=== PATIENT | female | born 1950 | race Caucasian/White ===

== ENCOUNTER 2022-07-22 09:56 | Emergency (ER) | payer MEDICARE ==
--- NOTE | 2022-07-22 09:58 | ERPHSYRPT ---
- History of Present Illness Time Seen by Provider: 07/22/22 09:58 Historian: patient Exam Limitations: no limitations Physician History: This is a 72-year-old white female who states that she is extremely healthy. But over the last month she has had intermittent left-sided chest pain that she describes as an ache or pressure. She has not seen a technical service specialist in 25 years. The patient is under a lot of stress at this time with some deaths in the family as well as deaths of friends. She wanted to be evaluated to make sure she was not having heart attack. Timing/Duration: intermittent, other (Intermittently for a month) Quality: aching, pressure Location: other (Left anterior chest) Severity of Pain-Max: mild Severity of Pain-Current: mild Associated Symptoms: denies symptoms Prior Chest Pain/Cardiac Workup: no prior chest pain Nitro Today/Relief: no nitro taken today Aspirin Treatment Today: 81 mg x 4, provided by ED Allergies/Adverse Reactions: chocolate flavor Allergy (Severe, Verified 07/22/22 10:06) Shortness of Breath peanut Allergy (Intermediate, Verified 07/22/22 10:06) hives shortness of breath Sulfa (Sulfonamide Antibiotics) Allergy (Intermediate, Verified 07/22/22 10:04) Hives dimenhydrinate [From Dramamine] Adverse Reaction (Verified 07/22/22 10:06) dizzy mercury (elemental) Adverse Reaction (Verified 07/22/22 10:06) sensitivity Home Medications: No Reportable Medications [No Reported Medications] 07/22/22 [History] Travel Risk - International Travel Have you traveled outside of the country in past 3 weeks: No - Coronavirus Screening Are you exhibiting any of the following symptoms?: No Close contact with a COVID-19 positive Pt in past 14-21 Days: No - Review of Systems Constitutional: No Symptoms Eyes: No Symptoms Ears, Nose, & Throat: No Symptoms Respiratory: No Symptoms Cardiac: Chest Pain (Left anterior and lower chest) Abdominal/Gastrointestinal: No Symptoms Genitourinary Symptoms: No Symptoms Musculoskeletal: No Symptoms Skin: No Symptoms Neurological: No Symptoms Psychological: No Symptoms Endocrine: No Symptoms Hematologic/Lymphatic: No Symptoms Immunological/Allergic: No Symptoms All Other Systems: Reviewed and Negative - Past Medical History Pertinent Past Medical History: Yes - Past Surgical History Past Surgical History: Yes - Nursing Vital Signs Nursing Vital Signs: Initial Vital Signs Temperature 97.8 F 07/22/22 09:56 Pulse Rate 86 07/22/22 09:56 Respiratory Rate 20 07/22/22 09:56 Blood Pressure 139/83 07/22/22 09:56 O2 Sat by Pulse Oximetry 99 07/22/22 09:56 Pain Scale Pain Intensity 0 - Physical Exam General Appearance: no apparent distress, alert, anxiety, thin Eye Exam: PERRL/EOMI, eyes nml inspection Ears, Nose, Throat Exam: normal ENT inspection, moist mucous membranes Neck Exam: normal inspection, non-tender, supple, full range of motion Respiratory Exam: normal breath sounds, chest tenderness, lungs clear, prolonged expirations, No respiratory distress Cardiovascular Exam: regular rate/rhythm, normal heart sounds, normal peripheral pulses Gastrointestinal/Abdomen Exam: soft, normal bowel sounds, No tenderness Pelvic Exam: deferred Rectal Exam: deferred Back Exam: normal inspection, normal range of motion, No CVA tenderness, No vertebral tenderness Extremity Exam: normal inspection, normal range of motion, pelvis stable Neurologic Exam: alert, oriented x 3, cooperative, event sales manager II-XII nml as tested, normal mood/affect, nml cerebellar function, nml station & gait, sensation nml Skin Exam: normal color, warm, dry Lymphatic Exam: No adenopathy SpO2 Interpretation: normal O2 Delivery: Room Air - Course Nursing assessment & vital signs reviewed: Yes EKG Interpreted by Me: RATE (78), NORMAL AXIS, NORMAL INTERVALS, NORMAL QRS, Other (No acute ischemic changes on today's twelve-lead EKG.) Ordered Tests: Active Orders 24 hr Category Date Time Status EKG-ER Only STAT Care 07/22/22 10:14 Active Pulse Oximetry (ED) STAT Care 07/22/22 10:14 Active CHEST 1 VIEW (PORTABLE) Stat Exams 07/22/22 10:15 Completed CBC W DIFF Stat Lab 07/22/22 10:00 Completed CMP Stat Lab 07/22/22 10:00 Completed D-DIMER QUANTITATIVE Stat Lab 07/22/22 10:00 Completed MAG [MAGNESIUM] Stat Lab 07/22/22 10:00 Completed TROPONIN Q4H Lab 07/22/22 10:00 Completed TROPONIN Q4H Lab 07/22/22 14:15 Ordered TROPONIN Q4H Lab 07/22/22 18:15 Ordered Medication Summary Discontinued Medications Generic Name Dose Route Start Last Admin Trade Name Melissa PRN Reason Stop Dose Admin Aspirin 324 mg 07/22/22 10:14 07/22/22 10:29 Aspirin 81 Mg Tab.Chew PO 07/22/22 10:15 324 mg STAT ONE Administration Aspirin Confirm 07/22/22 10:28 Aspirin 81 Mg Tab.Chew Administered 07/22/22 10:29 Dose 324 mg .ROUTE .STK-MED ONE Lab/Rad Data: Laboratory Result Diagrams 07/22/22 10:00 07/22/22 10:00 Laboratory Results 07/22/22 07/22/22 07/22/22 Range/Units 10:00 10:00 10:00 WBC (4.0-10.5) x10^3/uL RBC (4.1-5.4) x10^6/uL Hgb (12.0-16.0) g/dL Hct (35-47) % MCV (78-100) fL MCH (26-32) pg MCHC (32-36) g/dL RDW (11.5-14.0) % Plt Count (150-450) x10^3/uL MPV (7.5-11.0) fL Gran % (36.0-66.0) % Immature Gran % (Auto) (0.00-0.4) % Nucleat RBC Rel Count (0.00-0.1) % Eos # (Auto) (0-0.5) x10^3/uL Immature Gran # (Auto) (0.00-0.03) x10^3u/L Absolute Lymphs (auto) (1.0-4.6) x10^3/uL Absolute Monos (auto) (0.0-1.3) x10^3/uL Absolute Nucleated RBC (0.00-0.01) x10^3u/L Lymphocytes % (24.0-44.0) % Monocytes % (0.0-12.0) % Eosinophils % (0.00-5.0) % Basophils % (0.0-0.4) % Absolute Granulocytes (1.4-6.9) x10^3/uL Basophils # (0-0.4) x10^3/uL D-Dimer 0.33 (0.0-0.50) mg/L Sodium (137-145) mmol/L Potassium (3.5-5.1) mmol/L Chloride (98-107) mmol/L Carbon Dioxide (22-30) mmol/L Anion Gap (5-15) MEQ/L BUN (7-17) mg/dL Creatinine (0.52-1.04) mg/dL Estimated GFR ML/MIN Glucose (74-106) mg/dL Calcium (8.4-10.2) mg/dL Magnesium 2.1 (1.6-2.3) mg/dL Total Bilirubin (0.2-1.3) mg/dL AST (14-36) U/L ALT (0-35) U/L Alkaline Phosphatase (38-126) U/L Troponin I < 0.012 (0.000-0.034) ng/mL Serum Total Protein (6.3-8.2) g/dL Albumin (3.5-5.0) g/dL 07/22/22 07/22/22 Range/Units 10:00 10:00 WBC 4.7 (4.0-10.5) x10^3/uL RBC 5.09 (4.1-5.4) x10^6/uL Hgb 14.1 (12.0-16.0) g/dL Hct 43.8 (35-47) % MCV 86.1 (78-100) fL MCH 27.7 (26-32) pg MCHC 32.2 (32-36) g/dL RDW 13.3 (11.5-14.0) % Plt Count 210 (150-450) x10^3/uL MPV 10.7 (7.5-11.0) fL Gran % 75.9 H (36.0-66.0) % Immature Gran % (Auto) 0.2 (0.00-0.4) % Nucleat RBC Rel Count 0.0 (0.00-0.1) % Eos # (Auto) 0.06 (0-0.5) x10^3/uL Immature Gran # (Auto) 0.01 (0.00-0.03) x10^3u/L Absolute Lymphs (auto) 0.73 L (1.0-4.6) x10^3/uL Absolute Monos (auto) 0.30 (0.0-1.3) x10^3/uL Absolute Nucleated RBC 0.00 (0.00-0.01) x10^3u/L Lymphocytes % 15.6 L (24.0-44.0) % Monocytes % 6.4 (0.0-12.0) % Eosinophils % 1.3 (0.00-5.0) % Basophils % 0.6 (0.0-0.4) % Absolute Granulocytes 3.54 (1.4-6.9) x10^3/uL Basophils # 0.03 (0-0.4) x10^3/uL D-Dimer (0.0-0.50) mg/L Sodium 141 (137-145) mmol/L Potassium 3.9 (3.5-5.1) mmol/L Chloride 103 (98-107) mmol/L Carbon Dioxide 29 (22-30) mmol/L Anion Gap 13.1 (5-15) MEQ/L BUN 27 H (7-17) mg/dL Creatinine 0.74 (0.52-1.04) mg/dL Estimated GFR > 60.0 ML/MIN Glucose 90 (74-106) mg/dL Calcium 9.5 (8.4-10.2) mg/dL Magnesium (1.6-2.3) mg/dL Total Bilirubin 0.50 (0.2-1.3) mg/dL AST 33 (14-36) U/L ALT 24 (0-35) U/L Alkaline Phosphatase 86 (38-126) U/L Troponin I (0.000-0.034) ng/mL Serum Total Protein 7.4 (6.3-8.2) g/dL Albumin 4.4 (3.5-5.0) g/dL - Progress Progress: improved, re-examined Air Movement: good Progress Note: 07/22/22 11:32 Chest x-ray was interpreted by the radiologist and I reviewed the impression. The impression is nonacute chest. This patient has a medical issue of moderate complexity. The level of complexity and the work-up performed is based on review of the patient's past medical history, medication list, drug allergy list, history of present illness and physical findings on examination. The work-up performed included placement of intravenous line, twelve-lead EKG, D-dimer, troponin, CBC, CMP, chest x-ray, magnesium level. The results were reviewed by me. There were no evidence of any acute or emergent findings. Patient be discharged home with instructions to follow-up with her nurse practitioner for further evaluation and management. Blood Culture(s) Obtained: No Antibiotics given: No Counseled pt/family regarding: lab results, diagnosis, need for follow-up, rad results Medical Desision Making - Independent Historian Additional History obtained from: Family - Discussion of managment Reviewed:: Test results, Need for additional workup Agreed on:: Treatment plan, need for follow-up - Diagnostic Testing Diagnostic test were ordered, analyzed, and reviewed by me: Yes Radiological Interpretation: Reviewed by me, Teleradiologist Report - Risk of complications Low Risk: Low risk of morbidity from additional dx testing or treatment - Departure Departure Disposition: Home Clinical Impression: Anxiety about health, Non-cardiac chest pain Condition: Stable Critical Care Time: No Referrals: MANJU PERRY MD [Primary Care Provider] - Follow up/PCP as directed Additional Instructions: Follow-up with your nurse practitioner for further evaluation and management. Continue your medications as prescribed.
[2022-07-22] MEDS ORDERED: BABY ASPIRIN 81 MG CHEW PO ONE (10:14)
[2022-07-22 10:26] LABS: Absolute Neutrophil Ct (ANC) 3.54 x10^3/uL (1.4-6.9); BASOPHIL % 0.6 % (0.0-0.4); Basophil (Absolute #) 0.03 x10^3/uL (0-0.4); Eosinophil % 1.3 % (0.00-5.0); Eosinophil (Absolute #) 0.06 x10^3/uL (0-0.5); Hematocrit 43.8 % (35-47); Hemoglobin 14.1 g/dL (12.0-16.0); IMMATURE GRAN # 0.01 x10^3u/L (0.00-0.03); IMMATURE GRAN % 0.2 % (0.00-0.4); Lymphocyte (Absolute #) 0.73 x10^3/uL (1.0-4.6); Lymphocytes % 15.6 % (24.0-44.0); Mean Cell Volume 86.1 fL (78-100); Mean Corpuscular Hemoglobin 27.7 pg (26-32); Mean Corpuscular Hgb Concent. 32.2 g/dL (32-36); Mean Platelet Volume 10.7 fL (7.5-11.0); Monocytes % 6.4 % (0.0-12.0); Neutrophil % 75.9 % (36.0-66.0); Platelet Count 210 x10^3/uL (150-450); Red Blood Count 5.09 x10^6/uL (4.1-5.4); Red Cell Distribution Width 13.3 % (11.5-14.0); White Blood Count 4.7 x10^3/uL (4.0-10.5)
[2022-07-22] MEDS ORDERED: BABY ASPIRIN 81 MG CHEW ONE (10:28)
[2022-07-22 10:43] LABS: ALBUMIN 4.4 g/dL (3.5-5.0); ALKALINE PHOSPHATASE 86 U/L (38-126); ANION GAP 13.1 MEQ/L (5-15); BLOOD UREA NITROGEN 27 mg/dL (7-17); CHLORIDE 103 mmol/L (98-107); Calcium 9.5 mg/dL (8.4-10.2); Carbon Dioxide 29 mmol/L (22-30); Creatinine 1 0.74 mg/dL (0.52-1.04); EST GLOMERULAR FILTRATION RATE > 60.0 ML/MIN; Glucose 90 mg/dL (74-106); Potassium 3.9 mmol/L (3.5-5.1); SGOT/AST 33 U/L (14-36); SGPT/ALT 24 U/L (0-35); SODIUM 141 mmol/L (137-145); Total Protein 7.4 g/dL (6.3-8.2)
--- NOTE | 2022-07-22 10:45 | XRAY ---
Indication: Chest pain. Comparison: None Portable chest inflated and clear. Heart not enlarged. Bony thorax intact with osteopenia. Impression: Nonacute chest.
[2022-07-22 11:42] VITALS: BP 132/88; PULSE 70; O2SAT 98
== END 2022-07-22 11:45 | disposition home or self-care (01) ==
LOC: ED 09:56
DX: F45.9 Somatoform disorder, unspecified (principal); R07.89 Other chest pain; Z63.4 Disappearance and death of family member
CPT/HCPCS: 36415; 71045; 80053; 83735; 84484; 85025; 85379; 93005; 94760; 99283; A9270-GY

== ENCOUNTER 2024-01-28 11:04 | Emergency (ER) | payer MEDICARE, OTHER ==
--- NOTE | 2024-01-28 11:12 | ERPHSYRPT ---
- History of Present Illness Time Seen by Provider: 01/28/24 11:12 Historian: patient, old records Exam Limitations: no limitations Physician History: This is a 73-year-old white female patient who arrives by private vehicle and is a patient of Dr. Perry and has had chronic intermittent chest pain for at least 18 months. I reviewed the emergency department visit from 07/22/2022 here in the emergency department [facility]. The EKG at that time shows a h eart rate of 78 bpm and it is a normal sinus rhythm. The QTc is 490. No other acute findings present on that twelve-lead EKG. Patient has noticed in the last few weeks that her chest pain, described as an ache and mild pressure in the left anterior chest without radiation, have been coming on more frequently. She does states she is under a lot of stress at this time. She does not have chest pain with exertion or activity level. Primarily her chest pain is at night when she is trying to go to sleep. She has not seen a instrumental teacher. She did have a calcium cardiac scoring done on 01/21/2024. She also had an echocardiogram done on 01/21/2024 and I was able to review the impression from the radiologist which shows tricuspid regurgitation, mitral regurgitation with ejection fraction that appears to be 71%. She began having some chest pain at 3:00 in the morning and did not go away until approximately an hour prior to arrival to our emergency department. She does not currently have any chest pain. She is not short of breath. Quality: aching, dullness, pressure Location: other Chest Pain Radiation: no radiation (Left anterior chest wall) Severity of Pain-Max: mild Severity of Pain-Current: none Associated Symptoms: denies symptoms Prior Chest Pain/Cardiac Workup: echocardiography Nitro Today/Relief: no nitro taken today Aspirin Treatment Today: 81 mg x 4, provided by ED Allergies/Adverse Reactions: chocolate Allergy (Severe, Verified 01/28/24 11:19) Anaphylactic Reaction chocolate flavor Allergy (Severe, Verified 07/22/22 10:06) Shortness of Breath peanut Allergy (Intermediate, Verified 07/22/22 10:06) hives shortness of breath Sulfa (Sulfonamide Antibiotics) Allergy (Intermediate, Verified 07/22/22 10:04) Hives lactase [From Dairy Aid] Allergy (Verified 01/28/24 11:19) dimenhydrinate [From Dramamine] Adverse Reaction (Verified 07/22/22 10:06) dizzy mercury (elemental) Adverse Reaction (Verified 07/22/22 10:06) sensitivity Home Medications: No Reportable Medications [No Reported Medications] 07/22/22 [History] Hx Tetanus, Diphtheria Vaccination/Date Given: No Hx Influenza Vaccination/Date Given: No Hx Pneumococcal Vaccination/Date Given: No Travel Risk - International Travel Have you traveled outside of the country in past 3 weeks: No - Emerging Infectious Disease Are you exhibiting symptoms associated with any current EIDs: No - Review of Systems Constitutional: No Symptoms Eyes: No Symptoms Ears, Nose, & Throat: No Symptoms Respiratory: No Symptoms Cardiac: Chest Pain (None now) Abdominal/Gastrointestinal: No Symptoms Genitourinary Symptoms: No Symptoms Musculoskeletal: No Symptoms Skin: No Symptoms Neurological: No Symptoms Psychological: No Symptoms Endocrine: No Symptoms Hematologic/Lymphatic: No Symptoms Immunological/Allergic: No Symptoms All Other Systems: Reviewed and Negative - Past Medical History Pertinent Past Medical History: Yes Musculoskeletal History: Osteoarthritis - Past Surgical History Past Surgical History: Yes Other Surgical History: partial histerectoy. tonsil and adnoids - Social History Smoking Status: Never smoker Exposure to second hand smoke: No Drug Use: none Patient Lives Alone: Yes - Nursing Vital Signs Nursing Vital Signs: Initial Vital Signs Temperature 98.3 F 01/28/24 11:26 Pulse Rate 87 01/28/24 11:26 Respiratory Rate 20 01/28/24 11:26 Blood Pressure 116/68 01/28/24 11:26 O2 Sat by Pulse Oximetry 99 01/28/24 11:26 Pain Scale Pain Intensity 4 - Physical Exam General Appearance: no apparent distress, alert, anxiety, thin Eye Exam: PERRL/EOMI, eyes nml inspection Ears, Nose, Throat Exam: normal ENT inspection, moist mucous membranes Neck Exam: normal inspection, non-tender, supple, full range of motion Respiratory Exam: normal breath sounds, lungs clear, airway intact, No chest tenderness, No respiratory distress Cardiovascular Exam: regular rate/rhythm, normal heart sounds, normal peripheral pulses Gastrointestinal/Abdomen Exam: soft, normal bowel sounds, No tenderness Pelvic Exam: not done Rectal Exam: not done Back Exam: normal inspection, normal range of motion, No CVA tenderness Extremity Exam: normal inspection, normal range of motion, pelvis stable Neurologic Exam: alert, oriented x 3, cooperative, autism teacher II-XII nml as tested, normal mood/affect, nml cerebellar function, nml station & gait, sensation nml Skin Exam: normal color, warm, dry Lymphatic Exam: No adenopathy SpO2 Interpretation: normal O2 Delivery: Room Air - Course Nursing assessment & vital signs reviewed: Yes EKG Interpreted by Me: RATE (79), Sinus Rhythm, NORMAL AXIS, NORMAL INTERVALS, N ORMAL QRS, Other (No acute ischemic changes on today's twelve-lead EKG. No change when compared to twelve-lead EKG dated 07/22/2022.) Ordered Tests: Active Orders 24 hr Category Date Time Status After School Teacher STAT Care 01/28/24 11:18 Active EKG-ER Only STAT Care 01/28/24 11:18 Active IV Insertion STAT Care 01/28/24 11:18 Active Pulse Oximetry (ED) STAT Care 01/28/24 11:18 Active CHEST 1 VIEW (PORTABLE) Stat Exams 01/28/24 12:14 Taken CBC W DIFF Stat Lab 01/28/24 11:24 Completed CMP Stat Lab 01/28/24 11:24 Completed D-DIMER QUANTITATIVE Stat Lab 01/28/24 11:24 Completed PROTIME WITH INR Stat Lab 01/28/24 11:24 Completed TROPONIN Q4H Lab 01/28/24 11:24 Completed TROPONIN Q4H Lab 01/28/24 15:30 Ordered TROPONIN Q4H Lab 01/28/24 19:30 Ordered Medication Summary Discontinued Medications Generic Name Dose Route Start Last Admin Trade Name Jovaniq PRN Reason Stop Dose Admin Aspirin 324 mg 01/28/24 11:18 01/28/24 11:26 Aspirin 81 Mg Tab.Chew PO 01/28/24 11:19 324 mg STAT ONE Administration Aspirin Confirm 01/28/24 11:24 Aspirin 81 Mg Tab.Chew Administered 01/28/24 11:25 Dose 324 mg .ROUTE .STK-MED ONE Lab/Rad Data: Laboratory Result Diagrams 01/28/24 11:24 01/28/24 11:24 Laboratory Results 01/28/24 01/28/24 01/28/24 Range/Units 11:24 11:24 11:24 WBC (3.98-10.04) x10^3/uL RBC (3.93-5.22) x10^6/uL Hgb (11.2-15.7) g/dL Hct (34.1-44.9) % MCV (79.4-94.8) fL MCH (25.6-32.2) pg MCHC (32.2-35.5) g/dL RDW (11.7-14.4) % Plt Count (182-369) x10^3/uL MPV (9.4-12.3) fL Gran % (34.0-71.1) % Immature Gran % (Auto) (0.001-0.429) % Nucleat RBC Rel Count (0.00-0.2) % Eos # (Auto) (0.04-0.36) x10^3/uL Immature Gran # (Auto) (0.001-0.031) x10^3u/L Absolute Lymphs (auto) (1.18-3.74) x10^3/uL Absolute Monos (auto) (0.24-0.86) x10^3/uL Absolute Nucleated RBC (0.00-0.012) x10^3u/L Lymphocytes % (19.3-51.7) % Monocytes % (4.7-12.5) % Eosinophils % (0.7-5.8) % Basophils % (0.1-1.2) % Absolute Granulocytes (1.56-6.13) x10^3/uL Basophils # (0.01-0.08) x10^3/uL PT 10.5 (9.4-12.5) SECONDS INR 0.96 (0.8-3.0) D-Dimer 0.33 (0.0-0.50) mg/L Sodium 142 (135-145) mmol/L Potassium 3.9 (3.5-5.1) mmol/L Chloride 106 (98-107) mmol/L Carbon Dioxide 26 (22-30) mmol/L Anion Gap 13.8 (5-15) MEQ/L BUN 23 H (7-17) mg/dL Creatinine 0.74 (0.52-1.04) mg/dL Estimated GFR 86.4 ML/MIN Glucose 101 (74-106) mg/dL Calcium 9.9 (8.4-10.2) mg/dL Total Bilirubin 0.50 (0.2-1.3) mg/dL AST 28 (14-36) U/L ALT 21 (0-35) U/L Alkaline Phosphatase 70 (38-126) U/L Troponin I < 0.012 (0.000-0.033) ng/mL Serum Total Protein 6.5 (6.3-8.2) g/dL Albumin 4.3 (3.5-5.0) g/dL 01/28/24 Range/Units 11:24 WBC 5.5 (3.98-10.04) x10^3/uL RBC 4.97 (3.93-5.22) x10^6/uL Hgb 13.6 (11.2-15.7) g/dL Hct 42.1 (34.1-44.9) % MCV 84.7 (79.4-94.8) fL MCH 27.4 (25.6-32.2) pg MCHC 32.3 (32.2-35.5) g/dL RDW 13.4 (11.7-14.4) % Plt Count 200 (182-369) x10^3/uL MPV 10.8 (9.4-12.3) fL Gran % 71.1 (34.0-71.1) % Immature Gran % (Auto) 0.2 (0.001-0.429) % Nucleat RBC Rel Count 0.0 (0.00-0.2) % Eos # (Auto) 0.06 (0.04-0.36) x10^3/uL Immature Gran # (Auto) 0.01 (0.001-0.031) x10^3u/L Absolute Lymphs (auto) 1.15 L (1.18-3.74) x10^3/uL Absolute Monos (auto) 0.34 (0.24-0.86) x10^3/uL Absolute Nucleated RBC 0.00 (0.00-0.012) x10^3u/L Lymphocytes % 20.9 (19.3-51.7) % Monocytes % 6.2 (4.7-12.5) % Eosinophils % 1.1 (0.7-5.8) % Basophils % 0.5 (0.1-1.2) % Absolute Granulocytes 3.90 (1.56-6.13) x10^3/uL Basophils # 0.03 (0.01-0.08) x10^3/uL PT (9.4-12.5) SECONDS INR (0.8-3.0) D-Dimer (0.0-0.50) mg/L Sodium (135-145) mmol/L Potassium (3.5-5.1) mmol/L Chloride (98-107) mmol/L Carbon Dioxide (22-30) mmol/L Anion Gap (5-15) MEQ/L BUN (7-17) mg/dL Creatinine (0.52-1.04) mg/dL Estimated GFR ML/MIN Glucose (74-106) mg/dL Calcium (8.4-10.2) mg/dL Total Bilirubin (0.2-1.3) mg/dL AST (14-36) U/L ALT (0-35) U/L Alkaline Phosphatase (38-126) U/L Troponin I (0.000-0.033) ng/mL Serum Total Protein (6.3-8.2) g/dL Albumin (3.5-5.0) g/dL - Progress Progress: re-examined, unchanged Air Movement: good Progress Note: 01/28/24 12:12 My medical decision making and the assignment of moderate complexity to today's medical issue is based on review of the patient's past medical history, review the patient's medication list, reviewed patient drug allergy list, history present illness and physical findings on examination. The workup today includes placement of intravenous line, twelve-lead EKG, CBC, CMP, magnesium level, troponin level, D-dimer level, chest x-ray. Differential diagnosis includes but is not limited to muscle skeletal pain, anxiety about health, noncardiac chest pain, electrolyte abnormalities, pulmonary embolus, pneumonia, arrhythmias 01/28/24 12:23 I reviewed the patient's laboratory data results. Based on the laboratory data results, the patient has no acute, emergent medical issue. 01/28/24 12:34 I interpreted the patient's preliminary report on her chest x-ray. There is no acute cardiopulmonary process. This patient currently has no chest pain. She notices chest pain primarily at night when she is trying to sleep. She does not have chest pain with exertion or activity. She herself states that she is under a lot of stress at this time. She has not seen a instrumental teacher. Her heart score is low. We will discharge her to home Blood Culture(s) Obtained: No Antibiotics given: No Counseled pt/family regarding: lab results, diagnosis, need for follow-up, rad results Medical Desision Making - Independent Historian Additional History obtained from: Relative/friend - Diagnostic Testing Diagnostic test were ordered, analyzed, and reviewed by me: Yes Radiological Interpretation: Interpreted by me - Risk of complications Low Risk: Low risk of morbidity from additional dx testing or treatment - Departure Departure Disposition: Home Clinical Impression: Nonspecific chest pain, Stress Condition: Stable Critical Care Time: No Referrals: MANJU PERRY MD [Primary Care Provider] - Follow up/PCP as directed Additional Instructions: Take all your medications as prescribed. Call your prescribing provider today, 01/28/2024, to make arrangements for follow-up appointment to discuss results of recent studies performed as an outpatient and possible referral to instrumental teacher if indicated.
[2024-01-28 11:24] LABS: BASOPHIL % 0.5 % (0.1-1.2); Basophil (Absolute #) 0.03 x10^3/uL (0.01-0.08); Eosinophil % 1.1 % (0.7-5.8); Eosinophil (Absolute #) 0.06 x10^3/uL (0.04-0.36); Hematocrit 42.1 % (34.1-44.9); Hemoglobin 13.6 g/dL (11.2-15.7); IMMATURE GRAN # 0.01 x10^3u/L (0.001-0.031); IMMATURE GRAN % 0.2 % (0.001-0.429); Lymphocyte (Absolute #) 1.15 x10^3/uL (1.18-3.74); Lymphocytes % 20.9 % (19.3-51.7); Mean Cell Volume 84.7 fL (79.4-94.8); Mean Corpuscular Hemoglobin 27.4 pg (25.6-32.2); Mean Corpuscular Hgb Concent. 32.3 g/dL (32.2-35.5); Mean Platelet Volume 10.8 fL (9.4-12.3); Monocyte (Absolute #) 0.34 x10^3/uL (0.24-0.86); Monocytes % 6.2 % (4.7-12.5); Neutrophil % 71.1 % (34.0-71.1); Platelet Count 200 x10^3/uL (182-369); Red Blood Count 4.97 x10^6/uL (3.93-5.22); Red Cell Distribution Width 13.4 % (11.7-14.4); White Blood Count 5.5 x10^3/uL (3.98-10.04)
[2024-01-28] MEDS ORDERED: BABY ASPIRIN 81 MG CHEW ONE (11:24)
[2024-01-28] MEDS: BABY ASPIRIN 81 MG CHEW PO ONE (11:26)
[2024-01-28 11:36] VITALS: TEMP 98.3
[2024-01-28 11:38] LABS: ALBUMIN 4.3 g/dL (3.5-5.0); ANION GAP 13.8 MEQ/L (5-15); BILIRUBIN,TOTAL 0.5 mg/dL (0.2-1.3); Calcium 9.9 mg/dL (8.4-10.2); Creatinine 1 0.74 mg/dL (0.52-1.04); EST GLOMERULAR FILTRATION RATE 86.4 ML/MIN; Potassium 3.9 mmol/L (3.5-5.1); Total Protein 6.5 g/dL (6.3-8.2)
[2024-01-28 11:39] LABS: D-DIMER QUANTITATIVE 0.33 mg/L (0.0-0.50); INR 0.96 (0.8-3.0); PROTIME 10.5 SECONDS (9.4-12.5)
[2024-01-28 12:15] VITALS: PULSE 70
[2024-01-28 12:55] VITALS: BP 111/77; RESP 16; O2SAT 99
--- NOTE | 2024-01-28 13:14 | XRAY ---
Indication: Left chest pain for weeks. Comparison: July 22, 2022 Portable chest again demonstrates normal heart and lungs. Bony thorax intact with osteopenia and minimal dextroscoliosis. No new/acute findings.
== END 2024-01-28 13:01 | disposition home or self-care (01) ==
LOC: ED 11:04
DX: R07.9 Chest pain, unspecified (principal); Z73.3 Stress, not elsewhere classified
CPT/HCPCS: 36000; 36415; 71045; 80053; 84484; 85025; 85379; 85610; 93005; 93041; 94760; 99284; A9270-GY